=== PATIENT | male | born 1990 | race Caucasian/White ===

== ENCOUNTER 2025-01-06 08:16 | Emergency (ER) | payer SELFPAY ==
[2025-01-06] MEDS: Ketorolac 30 MG/ML SDV IM ONE (09:02)
== END 2025-01-06 10:59 | disposition home or self-care (01) ==
LOC: MW.ED 08:16
DX: M25.571 Pain in right ankle and joints of right foot (principal); Z79.899 Other long term (current) drug therapy
CPT/HCPCS: 73590; 73600; 73610; 73630; 96372; 99283; J1885; 99284